=== PATIENT | male | born 1950 | race Caucasian/White ===

== ENCOUNTER 2021-09-27 07:10 | Emergency (ER) | payer OTHER, MEDICARE ==
[2021-09-27 07:28] VITALS: BMI 25.0
[2021-09-27] MEDS ORDERED: PIPERACILLIN/TAZOB 2.25 GM 2.25 GM in DEXTROSE 5%-WATER - 50 ML IVPB ONE (11:48)
[2021-09-27] MEDS ORDERED: VANCOMYCIN 1 GM in D5W (PRE-DOCKED) 1,000 MG/250 ML IVPB ONE (11:48)
[2021-09-27] MEDS ORDERED: VANCOMYCIN 1,000 MG VIAL (RESTRICTED TO ID ONLY) ONE (11:55)
[2021-09-27 11:59] LABS: INR 1.17 (0.83-1.09); PROTHROMBIN TIME (PATIENT) 13.5 SEC (9.7-13.0)
[2021-09-27 12:01] LABS: ACTIVATED PTT 30.2 SECONDS (25.2-36.5)
[2021-09-27 12:02] LABS: ALBUMIN 3.5 g/dl (3.4-5.0); BILIRUBIN,TOTAL 1.1 mg/dl (0.2-1); CALCIUM 9.4 mg/dl (8.5-10); CREATININE 1.3 mg/dl (0.55-1.3); TOT PROT 7.5 g/dl (6.4-8.2)
[2021-09-27 12:28] VITALS: BP 154/78; PULSE 68; TEMP 99
[2021-09-27 13:06] LABS: HEMATOCRIT 38.5 % (35.4-49); HEMOGLOBIN 12.5 GM/dL (11.7-16.9); MCH 26.9 pg (25.7-33.7); MCHC 32.5 g/dl (32.0-35.9); MEAN CELL VOLUME 82.8 fl (80-96); MEAN PLT VOLUME 9.3 fl (7.5-11.1); PLATELET COUNT 194 10^3/uL (134-434); RBC 4.65 M/mm3 (4.00-5.60); RDW 15.7 % (11.9-15.9); WHITE BLOOD COUNT 21.6 K/mm3 (4.0-10.0)
[2021-09-27 14:02] LABS: ANISOCYTOSIS 3+; MACROCYTOSIS 0; PLATELET ESTIMATE NORMAL
== END 2021-09-27 12:49 | disposition short-term general hospital (02) ==
LOC: FER 07:10
PROC: 3E033GC Introduction of Other Therapeutic Substance into Peripheral Vein, Percutaneous Approach (ICD-10-PCS; principal; 2021-09-27)
DX: K11.20 Sialoadenitis, unspecified (principal); L03.211 Cellulitis of face
CPT/HCPCS: 36415; 70486-TC; 80053; 85025; 85610; 85730; 86850; 86900; 86901; 99285-25

== ENCOUNTER 2021-11-07 17:34 | Emergency (ER) | payer OTHER, MEDICARE ==
[2021-11-07 17:48] VITALS: BP 150/83; PULSE 76; TEMP 97.5; BMI 25.0
== END 2021-11-07 19:07 | disposition home or self-care (01) ==
LOC: JER 17:34
DX: T18.128A Food in esophagus causing other injury, initial encounter (principal)
CPT/HCPCS: 99282-25

== ENCOUNTER 2023-11-01 20:14 | Emergency (ER) | payer OTHER, MEDICARE ==
[2023-11-01] MEDS ORDERED: GLUCAGON 1 MG KIT ONE (20:45)
[2023-11-01] MEDS: GLUCAGON 1 MG KIT IVPUSH ONE (20:52)
[2023-11-01] MEDS: SODIUM CHLORIDE 0.9% 500 ML INFUS.BAG IV ONE (20:54)
[2023-11-01 21:11] LABS: HEMATOCRIT 47.6 % (35.4-49); HEMOGLOBIN 15.6 G/dL (11.7-16.9); MCH 30.1 pg (25.7-33.7); MCHC 32.7 g/dl (32.0-35.9); MEAN CELL VOLUME 92.1 fl (80-96); MEAN PLT VOLUME 9.5 fl (7.5-11.1); PLATELET COUNT 205.7 10^3/uL (134-434); RBC 5.17 10^6/uL (4.00-5.60); RDW 14.3 % (11.9-15.9); WHITE BLOOD COUNT 11.6 10^3/uL (4.0-10.8)
[2023-11-01 21:24] LABS: ALBUMIN 4.3 g/dl (3.4-5.0); BILIRUBIN,TOTAL 0.7 mg/dl (0.2-1); CALCIUM 9.8 mg/dl (8.5-10.1); POTASSIUM 4.3 mmol/L (3.5-5.1); TOT PROT 7.7 g/dl (6.4-8.2)
[2023-11-01 21:35] VITALS: BP 145/93; PULSE 71; RESP 16; TEMP 98; BMI 23.7
== END 2023-11-01 21:38 | disposition left against medical advice (07) ==
LOC: FER 20:14
PROC: 3E033GC Introduction of Other Therapeutic Substance into Peripheral Vein, Percutaneous Approach (ICD-10-PCS; principal; 2023-11-01)
DX: T18.108A Unspecified foreign body in esophagus causing other injury, initial encounter (principal)
CPT/HCPCS: 36415; 80053; 85027; 99284-25

== ENCOUNTER 2024-02-16 17:19 | Emergency (ER) | payer OTHER, MEDICARE ==
[2024-02-16 17:31] VITALS: BP 169/80; PULSE 72; RESP 16; TEMP 97.8; BMI 23.7
== END 2024-02-16 18:38 | disposition left against medical advice (07) ==
LOC: JER 17:19
DX: S60.211A Contusion of right wrist, initial encounter (principal); S00.01XA Abrasion of scalp, initial encounter; S50.311A Abrasion of right elbow, initial encounter; R55 Syncope and collapse; R42 Dizziness and giddiness; W18.30XA Fall on same level, unspecified, initial encounter; Y92.481 Parking lot as the place of occurrence of the external cause
CPT/HCPCS: 99283-25